=== PATIENT | male | born 1980 | race Two or more races ===

== ENCOUNTER 2023-02-19 21:37 | Emergency (ER) | payer OTHER ==
[~2023-02-19] VITALS: Ht 172.7 cm; Wt 69.9 kg
[2023-02-19 22:29] VITALS: BP 128/74; TEMP 98
[2023-02-19] MEDS ORDERED: HYDROCODONE/APAP 5/325MG TABLET PO ONE (22:30)
[2023-02-19] MEDS ORDERED: HYDROCODONE/APAP 5/325MG TABLET ONE (22:49)
[2023-02-19] MEDS ORDERED: KETO10TA2 PO (23:56)
[2023-02-20 00:21] VITALS: O2SAT 98
== END 2023-02-20 00:22 | disposition home or self-care (01) ==
LOC: ER 21:39
DX: M79.671 Pain in right foot (principal)
CPT/HCPCS: 73630-TC